=== PATIENT | male | born 1960 | race Two or more races ===

== ENCOUNTER → 2024-07-13 | Outpatient (CLI) | payer BC, SELFPAY ==
[2024-07-13 16:12] LABS: Basophils % (Auto) 0 % (0-2.5); Eosinophils % (Auto) 1 % (0-10); Hematocrit 41.8 % (41.0-53.0); Hemoglobin 14.3 g/dL (13.5-16.0); Immature Granulocytes % (Auto) 0 % (0-0); Immature Granulocytes Auto 0.01 Thou/mm3 (0.00-0.00); Lymphocytes # (Auto) 2.5 Thou/mm3 (1.0-4.8); Lymphocytes % (Auto) 33 % (10-50); Mean Corpuscular HGB Conc 34.2 g/dl (31.0-37.0); Mean Corpuscular Volume 91 fL (80-100); Monocytes # (Auto) 0.4 Thou/mm3 (0.0-0.8); Monocytes % (Auto) 5 % (0-12); Neutrophils # (Auto) 4.7 Thou/mm3 (1.8-7.7); Neutrophils % (Auto) 62 % (37-80); Nucleated Red Blood Cell % 0 /100 WBC (0); Platelet Count 179 Thou/mm3 (140-440); RDW Standard Deviation 46.4 fL (35.1-43.9); Red Blood Count 4.62 Miln/mm3 (4.50-5.90); White Blood Count 7.6 Thou/mm3 (3.8-10.6)
[2024-07-13 16:26] LABS: Alanine Aminotransferase 35 U/L (10-49); Albumin, Serum 4.6 gm/dL (3.4-4.8); Albumin/Globulin Ratio 2.2 (1.2-2.2); Alkaline Phosphatase 57 U/L (46-116); Anion Gap 7 (7-16); Aspartate Amino Transferase 65 U/L (0-34); BUN/Creatinine Ratio 14 Ratio (12-20); Bilirubin,Total 0.8 mg/dL (0.3-1.2); Blood Urea Nitrogen 11 mg/dL (9-23); Calcium 9.7 mg/dL (8.3-10.6); Calcium (Corrected) 9.7 mg/dL (8.5-10.1); Carbon Dioxide 27.5 mMol/L (20.0-31.0); Cardiac Risk Estimate 3.3 RATIO (4.0-6.7); Chloride 106 mMol/L (98-107); Cholesterol 140 mg/dL (132-200); Creatinine (Component) 0.8 mg/dL (0.6-1.3); Globulin 2.1 gm/dL (2.3-3.5); Glucose 98 mg/dL (74-106); HDL Cholesterol 42 mg/dL (40-60); LDL Cholesterol,Calculated 52 mg/dL (0-130); Osmolality,Calculated 278 (275-295); Potassium 4.5 mMol/L (3.4-5.1); Sodium 140 mMol/L (136-145); Total Protein 6.7 gm/dL (5.7-8.2); Triglycerides 228 mg/dL (30-150); eGFR > 60 See Note
[2024-07-13 16:27] LABS: Creatinine MALB Rnd Ur 154 mg/dL (30-125); Microalbumin Creat Ratio 3 mg/gCrea (<30); Microalbumin, Random Urine 5 mg/L (0-300)
[2024-07-13 16:37] LABS: Glucose Estimated Average 100 mg/dL (80-131); Hemoglobin A1C 5.1 % Hgb (4.8-6.0)
[2024-07-13 16:39] LABS: Vitamin B12 317 pg/mL (211-911); Vitamin D 25 Hydroxy Total 67.6 ng/mL (7.3-40.2)
== END | disposition home or self-care (01) ==
PROVIDERS: PCP Family Medicine; Referring Provider Family Medicine; Visit Provider Internal Medicine Endocrinology, Diabetes & Metabolism
DX: E11.65 Type 2 diabetes mellitus with hyperglycemia (principal); E55.9 Vitamin D deficiency, unspecified; E53.8 Deficiency of other specified B group vitamins
CPT/HCPCS: 36415; 80053; 80061; 82043; 82306; 82570; 82607; 83036; 85025

== ENCOUNTER → 2024-08-10 | Outpatient (CLI) | payer BC, SELFPAY ==
[2024-08-10 09:08] LABS: Quantiferon-TB* See Sep Rpt
== END | disposition home or self-care (01) ==
PROVIDERS: PCP Family Medicine; Referring Provider Nurse Practitioner Family; Visit Provider Nurse Practitioner Family
DX: L40.0 Psoriasis vulgaris (principal)
CPT/HCPCS: 86480

== ENCOUNTER → 2024-10-16 | Outpatient (CLI) | payer BC, SELFPAY ==
--- NOTE | 2024-10-16 16:48 | XR_ITS ---
Examination: Knee, right , 3 views Technique: Knee AP, lateral, oblique 3 views Date and time of exam: October 16, 2024 1649 hrs. Indications: Right knee pain beginning 6 days ago. Findings: Mild tricompartment osteoarthritis No fracture or dislocation Impression: Mild tricompartment osteoarthritis
== END | disposition home or self-care (01) ==
PROVIDERS: PCP Family Medicine; Referring Provider Family Medicine; Visit Provider Family Medicine
DX: M17.11 Unilateral primary osteoarthritis, right knee (principal)
CPT/HCPCS: 73562

== ENCOUNTER → 2024-11-06 | Outpatient (CLI) | payer BC, SELFPAY ==
[2024-11-06 13:27] LABS: Basophils % (Auto) 1 % (0-2.5); Eosinophils # (Auto) 0.1 Thou/mm3 (0.0-0.5); Eosinophils % (Auto) 1 % (0-10); Hemoglobin 15.3 g/dL (13.5-16.0); Immature Granulocytes % (Auto) 0 % (0-0); Immature Granulocytes Auto 0.01 Thou/mm3 (0.00-0.00); Lymphocytes # (Auto) 2.3 Thou/mm3 (1.0-4.8); Lymphocytes % (Auto) 38 % (10-50); Mean Corpuscular HGB Conc 34.8 g/dl (31.0-37.0); Mean Corpuscular Hemoglobin 31.5 pg (25.0-35.0); Mean Corpuscular Volume 91 fL (80-100); Monocytes # (Auto) 0.3 Thou/mm3 (0.0-0.8); Monocytes % (Auto) 5 % (0-12); Neutrophils # (Auto) 3.4 Thou/mm3 (1.8-7.7); Neutrophils % (Auto) 56 % (37-80); Nucleated Red Blood Cell % 0 /100 WBC (0); Platelet Count 167 Thou/mm3 (140-440); RDW Standard Deviation 47.4 fL (35.1-43.9); Red Blood Count 4.86 Miln/mm3 (4.50-5.90); White Blood Count 6.1 Thou/mm3 (3.8-10.6)
[2024-11-06 13:42] LABS: Creatinine MALB Rnd Ur 119 mg/dL (30-125); Microalbumin Creat Ratio 3 mg/gCrea (<30); Microalbumin, Random Urine 4 mg/L (0-300)
[2024-11-06 13:45] LABS: Alanine Aminotransferase 19 U/L (10-49); Albumin, Serum 4.1 gm/dL (3.4-4.8); Albumin/Globulin Ratio 1.9 (1.2-2.2); Alkaline Phosphatase 56 U/L (46-116); Anion Gap 4 (7-16); Aspartate Amino Transferase 22 U/L (0-34); BUN/Creatinine Ratio 11 Ratio (12-20); Bilirubin,Total 0.9 mg/dL (0.3-1.2); Blood Urea Nitrogen 8 mg/dL (9-23); Carbon Dioxide 28.8 mMol/L (20.0-31.0); Cardiac Risk Estimate 3.4 RATIO (4.0-6.7); Chloride 109 mMol/L (98-107); Cholesterol 165 mg/dL (132-200); Creatinine (Component) 0.7 mg/dL (0.6-1.3); Globulin 2.2 gm/dL (2.3-3.5); Glucose 94 mg/dL (74-106); HDL Cholesterol 49 mg/dL (40-60); LDL Cholesterol,Calculated 95 mg/dL (0-130); Osmolality,Calculated 281 (275-295); Potassium 4.5 mMol/L (3.4-5.1); Sodium 142 mMol/L (136-145); Total Protein 6.3 gm/dL (5.7-8.2); Triglycerides 107 mg/dL (30-150); eGFR > 60 See Note
[2024-11-06 13:47] LABS: Vitamin B12 311 pg/mL (211-911); Vitamin D 25 Hydroxy Total 56.6 ng/mL (7.3-40.2)
[2024-11-06 15:32] LABS: Glucose Estimated Average 97 mg/dL (80-131)
== END | disposition home or self-care (01) ==
PROVIDERS: PCP Family Medicine; Referring Provider Internal Medicine Endocrinology, Diabetes & Metabolism; Visit Provider Family Medicine
DX: R79.89 Other specified abnormal findings of blood chemistry (principal); E55.9 Vitamin D deficiency, unspecified; E11.65 Type 2 diabetes mellitus with hyperglycemia
CPT/HCPCS: 36415; 80053; 80061; 82043; 82306; 82570; 82607; 83036; 85025

== ENCOUNTER → 2024-12-18 | Outpatient (CLI) | payer BC, SELFPAY ==
--- NOTE | 2024-12-18 08:15 | XR_ITS ---
Exam: MRI knee without contrast, right Date and time of exam: December 18, 2024 0828 hours INDICATIONS: Medial knee pain beginning 6 months ago Technique: Multiple axial, coronal, and sagittal sections on the knee have been obtained. T2-Weighted sagittal, fat-suppressed images, TR 3,500, TE 62, T2 weighted coronal fat-saturated images, TR 3,500, TE 62 Proton density sagittal sections, TR 1800, TE 31. T-1 weighted coronal images, TR 524, TE 13.0 Findings: Medial meniscus anterior horn intact. Medial meniscus, body is horizontal linear tear communicating inner margin. Posterior horn medial meniscus horizontal linear tear communicating inner margin. Lateral meniscus anterior horn is intact Lateral meniscus, body is intact Posterior horn lateral meniscus is intact Anterior cruciate ligament high-grade sprain Posterior cruciate ligament appears intact. Knee effusion is small. Quadriceps and patellar tendons appear intact. There is no evidence of tendinosis. Inflammatory change or fracture of Hoffa's fat pad is not seen. Medial patellar facet demonstrates moderate thinning. Lateral patellar facet cartilage demonstrates moderate thinning. Trochlear cartilage demonstrates moderate thinning. Marrow signal adequate. Medial collateral ligament appears intact. No meniscocapsular separation is seen. Illiotibial band and fibular collateral ligament are intact. Biceps femoris tendons appear intact. Medial femoral condylar articular cartilage demonstrates moderate thinning. Lateral femoral condylar articular cartilage demonstratesmoderate thinning. Tibial plateau cartilage demonstrates moderate thinning. Impression: Horizontal linear tears body and posterior horn medial meniscus High-grade sprain anterior cruciate ligament
== END | disposition home or self-care (01) ==
PROVIDERS: PCP Family Medicine; Referring Provider Family Medicine; Visit Provider Family Medicine
DX: S83.241A Other tear of medial meniscus, current injury, right knee, initial encounter (principal); S83.511A Sprain of anterior cruciate ligament of right knee, initial encounter; X58.XXXA Exposure to other specified factors, initial encounter
CPT/HCPCS: 73721

== ENCOUNTER → 2025-01-08 | Outpatient (CLI) | payer BC, SELFPAY ==
[2025-01-08 18:01] LABS: Prostate Specific Antigen 0.72 ng/mL (0-4.00)
== END | disposition home or self-care (01) ==
LOC: COPL 15:59
PROVIDERS: PCP Family Medicine; Referring Provider Urology; Visit Provider Urology
DX: N40.1 Benign prostatic hyperplasia with lower urinary tract symptoms (principal)
CPT/HCPCS: 36415; 84153

== ENCOUNTER → 2025-01-15 | Outpatient (BNVA) | payer BC, SELFPAY | END | disposition home or self-care (01) | PROVIDERS: PCP Family Medicine; Referring Provider Family Medicine; Visit Provider Urology | DX: N40.1 Benign prostatic hyperplasia with lower urinary tract symptoms (principal); N13.8 Other obstructive and reflux uropathy; E11.9 Type 2 diabetes mellitus without complications; E66.9 Obesity, unspecified; Z68.26 Body mass index [BMI] 26.0-26.9, adult | CPT/HCPCS: 81003; 99212; G0463 ==

== ENCOUNTER → 2025-01-30 | Outpatient (CLI) | payer BC, SELFPAY ==
[2025-01-30 12:12] LABS: Glucose Estimated Average 94 mg/dL (80-131); Hemoglobin A1C 4.9 % Hgb (4.8-6.0)
[2025-01-30 12:22] LABS: Alanine Aminotransferase 26 U/L (10-49); Albumin, Serum 4.4 gm/dL (3.4-4.8); Albumin/Globulin Ratio 1.8 (1.2-2.2); Alkaline Phosphatase 68 U/L (46-116); Anion Gap 6 (7-16); Aspartate Amino Transferase 26 U/L (0-34); BUN/Creatinine Ratio 11 Ratio (12-20); Bilirubin,Total 0.6 mg/dL (0.3-1.2); Blood Urea Nitrogen 9 mg/dL (9-23); Calcium 9.4 mg/dL (8.3-10.6); Calcium (Corrected) 9.4 mg/dL (8.5-10.1); Carbon Dioxide 30.3 mMol/L (20.0-31.0); Cardiac Risk Estimate 3.4 RATIO (4.0-6.7); Chloride 106 mMol/L (98-107); Cholesterol 171 mg/dL (132-200); Creatinine (Component) 0.8 mg/dL (0.6-1.3); Globulin 2.4 gm/dL (2.3-3.5); Glucose 104 mg/dL (74-106); HDL Cholesterol 50 mg/dL (40-60); LDL Cholesterol,Calculated 96 mg/dL (0-130); Osmolality,Calculated 281 (275-295); Sodium 142 mMol/L (136-145); Total Protein 6.8 gm/dL (5.7-8.2); Triglycerides 123 mg/dL (30-150); eGFR > 60 See Note
[2025-01-30 12:24] LABS: Vitamin B12 338 pg/mL (211-911); Vitamin D 25 Hydroxy Total 33.3 ng/mL (7.3-40.2)
[2025-01-30 13:29] LABS: Creatinine MALB Rnd Ur 240 mg/dL (30-125); Microalbumin Creat Ratio 5 mg/gCrea (<30); Microalbumin, Random Urine 12 mg/L (0-300)
== END | disposition home or self-care (01) ==
LOC: COPL 11:27
PROVIDERS: PCP Family Medicine; Referring Provider Family Medicine; Visit Provider Internal Medicine Endocrinology, Diabetes & Metabolism
DX: E11.65 Type 2 diabetes mellitus with hyperglycemia (principal); E78.1 Pure hyperglyceridemia; E53.8 Deficiency of other specified B group vitamins; E55.9 Vitamin D deficiency, unspecified
CPT/HCPCS: 36415; 80053; 80061; 82043; 82306; 82570; 82607; 83036

== ENCOUNTER → 2025-02-13 | Outpatient (CLI) | payer BC, SELFPAY ==
--- NOTE | 2025-02-13 | XR_ITS ---
Examination: MRI cervical spine without intravenous contrast Date and time of exam: February 13, 2025 0701 hours Comparison October 28, 2023 INDICATIONS: Neck pain years more prominent the last 6 months, history cervical spine surgery Technique: Multiple axial and sagittal sections of the cervical spine to been obtained. T2 weighted sagittal sections, TR 3, 270, TE 117 T1-weighted sagittal sections, TR 500, TE 11 T1-weighted axial sections, TR 607, TE 12, axial sections TR 18, TE 27 and T2 weighted transverse sections, TR 3920, TE 122. Findings: Satisfactory alignment cervical vertebral bodies Cervical fusion C5-C7 with satisfactory alignment No cervical fracture Intact odontoid No localized enlargement cervical cord C2-C3 no disc protrusion C3-C4 advanced right neural foraminal stenosis C4-C5 advanced left neural foraminal stenosis C5-C6 advanced left neural foraminal stenosis C6-C7 advanced left neural foraminal stenosis C7-T1 no disc protrusion IMPRESSION: Cervical fusion C5-C7 with satisfactory alignment C3-C4 advanced right neural foraminal stenosis C4-C5, C5-C6, C6-C7 advanced left neural foraminal stenosis
== END | disposition home or self-care (01) ==
PROVIDERS: PCP Family Medicine; Referring Provider Family Medicine; Visit Provider Family Medicine
DX: M43.22 Fusion of spine, cervical region (principal); M48.02 Spinal stenosis, cervical region
CPT/HCPCS: 72141

== ENCOUNTER 2025-03-15 11:05 | Emergency (ER) | payer BC, SELFPAY ==
[2025-03-15 11:15] VITALS: BP 145/89; PULSE 79; RESP 16; TEMP 36.6; O2SAT 98; BMI 25.8
--- NOTE | 2025-03-15 11:20 | XR_ITS ---
Examination: Shoulder,left, 3 views Technique: Shoulder AP internal rotation, AP external rotation, Y view shoulder, 3 views Exam date and time :March 15, 2025 1140 hours INDICATIONS: Patient fell off a roof yesterday with injury to the shoulder, shoulder pain FINDINGS: No shoulder fracture or dislocation No AC joint separation IMPRESSION: No shoulder fracture or dislocation
--- NOTE | 2025-03-15 11:20 | XR_ITS ---
Examination: Shoulder,right, 3 views Technique: Shoulder AP internal rotation, AP external rotation, Y view shoulder, 3 views Exam date and time :March 15, 2025 1150 hours INDICATIONS: Patient fell of the wrist today, shoulder pain FINDINGS: No shoulder fracture or dislocation. No AC joint separation. IMPRESSION: No shoulder fracture or dislocation.
--- NOTE | 2025-03-15 11:20 | XR_ITS ---
Examination: CT brain head without contrast. 2-D sagittal coronal reconstructions Date and time of exam:March 15, 2025 1231 hours INDICATIONS: Patient fell 8 feet off a ladder today with injury to the head, head pain CTDI: vol (mGy):51.5 DLP: (mGycm):1104 Technique: Multiple CT axial sections of the brain have been obtained, 5 mm slice thickness. Contrast has not been administered. 2-D sagittal, coronal reconstructions have been obtained Low dose protocols were performed. One or more of the following dose reduction techniques were used; automated exposure control, adjustment of the mA and/or KV according to patient size, use of iterative reconstruction technique. Findings: No significant ventricular enlargement. Intra-axial or extra-axial hemorrhage density is not seen. No mass effect or midline shift Basal cisterns are not remarkable. Fourth ventricle is midline. Cranial vault intact. Soft tissue swelling left frontal scalp Impression: Negative for acute hemorrhage, mass effect or midline shift
--- NOTE | 2025-03-15 11:20 | XR_ITS ---
Examination: Right wrist 2 views Technique: AP lateral right wrist 2 views Date and time: 09/15/2024 1146 hours INDICATIONS: Patient fell over a today with injury to the wrist, wrist pain. FINDINGS: Tiny area of possible cortical disruption dorsal distal radius on the lateral view Carpal bones intact IMPRESSION: Recommend 1-2 day follow-up films to exclude nondisplaced fracture distal right radial metaphysis
--- NOTE | 2025-03-15 11:20 | XR_ITS ---
Examination: Right knee 2 views TECHNIQUE: AP lateral right knee 2 views Date and time: March 15, 2025 1149 hours INDICATIONS: Patient fell off a roof today with into the knee, knee pain. FINDINGS: No fracture or dislocation. Mild tricompartment osteoarthritis IMPRESSION: No fracture or dislocation.
--- NOTE | 2025-03-15 11:20 | XR_ITS ---
Examination: CT maxillofacial, without intravenous contrast. 2-D sagittal reconstructions. 3-D reconstructions. Date and time of exam:March 15, 2025 1231 hours INDICATIONS: Patient fell 8 feet off a ladder today with injury to the face, facial pain CTDI: vol (mGy):15.7 DLP: (mGycm):307 Technique: Multiple axial images of maxillofacial region, 3.0 mm slice thickness. 2-D sagittal and coronal reconstructions. 3-D reconstructions. Low dose protocols were performed. One or more of the following dose reduction techniques were used; automated exposure control, adjustment of the mA and/or KV according to patient size, use of iterative reconstruction technique. Findings: Frontal bone intact Orbital rims intact The optic globes exhibit symmetry No nasal bone fracture No depression zygomatic arches Pterygoid plates maxilla and the mandible intact IMPRESSION: No acute facial fracture.
--- NOTE | 2025-03-15 11:20 | XR_ITS ---
Examination: Left wrist 2 views Technique one AP lateral left wrist 2 views Date and time: March 15, 2025 1144 hours INDICATIONS: Patient fell off a worse today with injury to the wrist, wrist pain. FINDINGS: Acute nondisplaced fracture distal radial metaphysis,, intra-articular breaking the cortex noted dorsal wrist on the lateral view Carpal bones intact IMPRESSION: Acute nondisplaced fracture distal radial metaphysis
--- NOTE | 2025-03-15 11:20 | XR_ITS ---
Examination: CT cervical spine without contrast 2-D sagittal reconstructions 2-D coronal reconstructions 3-D reconstructions. Exam date and time:March 15, 2025 1231 hours INDICATIONS: Patient fell off a ladder today with injury to the neck, neck pain CTDI:vol (mGy) 15.7 DLP: (mGycm) 356 Technique: Multiple 2 mm axial sections of the cervical spine have been obtained. The coronal and sagittal reconstructions have been obtained. 3-D reconstructions have been obtained. Low dose protocols were performed. One or more of the following dose reduction techniques were used; automated exposure control, adjustment of the mA and/or KV according to patient size, use of iterative reconstruction technique. Findings: Axial sections demonstrate intact base of the skull. C1 exhibit satisfactory relationship to the odontoid. No acute cervical vertebral body fracture seen. Alignment posterior spinous processes satisfactory. Cervical fusion C5-C7 with anatomic alignment Impression: No acute cervical fracture.
--- NOTE | 2025-03-15 11:22 | XR_ITS ---
Examination: AP chest single view Technique one AP portable sitting chest single view Date and time: March 15, 2025 1139 hours INDICATIONS: Patient follow fluoroscopy today with injury to the chest, chest pain FINDINGS: Normal heart size No pneumothorax Clavicles ribs appear intact IMPRESSION: No pneumothorax pulmonary contusion or hemothorax
--- NOTE | 2025-03-15 11:23 | EDNOTE_ITS ---
<Statement entered by Sheryl Dorado MD - 03/15/25 14:48> As co-signing physician, I was present and available for consult prn. I concur with the plan and care as documented by the midlevel provider. ED Fall Injury RME/HPI General Chief Complaint: Fall Stated Complaint: Fell from roof, hit head, wrist pain Time Seen by Provider: 03/15/25 11:19 Arrival date/time: 03/15/25 11:05 RME / HPI RME / HPI Narrative: 64-year-old male patient with significant history of hypertension diabetes mellitus, was brought in by family for evaluation regarding fall. Patient was fixing the roof of his house, on the way down, patient was in a ladder, and lost balance, and fell down according to him about 6 feet high. Patient sustained abrasion to the right side of the face, neck pain, bilateral shoulder pain, bilateral wrist pain, and right knee pain. Patient denies any LOC no nausea no vomiting. Patient is ambulatory. Patient is not taking any blood thinner. Incident happened about 30 minutes prior to ER visit. Related Data Home Medications ?Medication ?Instructions ?Recorded ?Confirmed enalapril maleate 2.5 mg tablet 2.5 mg PO DAILY 01/15/25 gemfibrozil 600 mg tablet 600 mg PO BID 02/12/2301/15 guselkumab 100 mg/mL subcutaneous 100 mg subcut 01/15/25 syringe (Tremfya) metformin 1,000 mg tablet 1,000 mg PO DAILY 02/12/23 0 01/15/25 pregabalin 100 mg capsule 100 mg PO BID 02/12/2301/15 rosuvastatin 20 mg tablet 20 mg PO DAILY 02/12/2305/03 semaglutide 2 mg/dose (8 mg/3 mL) mg subcut 02/12/23 0 01/15/25 subcutaneous pen injector (Ozempic) Previous Rx's ?Medication ?Instructions ?Recorded acetaminophen 300 mg-codeine 30 mg 1 tab PO Q8H PRN pa in #20 tabs 03/15/25 tablet Allergies Allergy/AdvReac Type Severity Reaction Status Date / Time No Known Allergies Allergy Verified 03/15/25 11:10 Review of Systems Review of Systems Narrative Review of Systems: Review of system reviewed and within normal limits except mentioned in HPI ED Exam Narrative Physical exam: VITAL SIGNS: Reviewed. GENERAL APPEARANCE: Alert and interactive, follows commands, no acute distress, HEAD AND FACE: Abrasions noted to the right side of her face ENT: PERRL, pink conjunctivitis, eyelid no trauma, Mucous membrane moist. NECK: Supple, posterior neck tenderness, no nuchal rigidity. CHEST: No tenderness, no crepitus, no paradoxical movement, no retractions. LUNGS: Clear, well ventilated, symmetric, no rales, no wheezing, no ronchi, no stridor, good breath sounds bilaterally. HEART: Regular rate, regular rhythm, no murmur, no gallops. ABDOMEN: Soft, positive bowel sounds, nondistended, no guarding, nontender, no rebound, no masses, RECTAL: Deferred. GENITAL: Deferred. NEUROLOGICAL: Gross motor function intact sensory function intact, Appropriate for age. MUSCULOSKELETAL: low back nontender, full range of motion. EXTREMITIES: Bilateral wrist tenderness, mild swelling full range of motion. Lateral shoulder tenderness, no swelling or deformity, right knee tenderness, with abrasion and contusion full range of motion of the knee joint SKIN: Color pink, dry, no rash, no lacerations, no abrasions, no contusions. LYMPHATICS: Deferred. Course Quality Measures none Orders Category Date Time Status CT cervical spine wo con Stat Exams 03/15/25 11:[address] facial bones wo con Stat Exams 03/15/25 11:[address] head/brain wo con Stat Exams 03/15/25 11:20 Completed XR chest 1V Stat Exams 03/15/25 11:22 Completed XR knee limited RT 2V Stat Exams 03/15/25 11:20 Completed XR shoulder LT min 2V Stat Exams 03/15/25 11:20 Completed XR shoulder RT min 2V Stat Exams 03/15/25 11:20 Completed XR wrist LT 2V Stat Exams 03/15/25 11:20 Completed XR wrist RT 2V Stat Exams 03/15/25 11:20 Completed HYDROcodone*/APAP 5/325 [[place] 5/325] Med 03/15/25 11:20 Discontinued 1 tab PO X1 ONE Morphine Inj Med 03/15/25 13:32 Discontinued 4 mg IM X1 ONE TET,DIP/PERT AC (Adult)-Tdap [Boostrix Adult (Tdap) Med 03/15/25 11:20 Discontinued Vacc] 0.5 ml IMI .ONCE ONE Vital Signs Vital signs: Vital Signs Temperature 97.8 F 03/15/25 11:15 Pulse Rate 79 03/15/25 11:15 Respiratory Rate 16 03/15/25 11:15 Blood Pressure 145/89 H 03/15/25 11:15 Pulse Oximetry (%) 98 03/15/25 11:15 Oxygen Delivery Method Room Air 03/15/25 11:15 Fall MDM Narrative MDM Narrative:: 64-year-old male patient with significant history of hypertension diabetes mellitus, was brought in by family for evaluation regarding fall. Patient was fixing the roof of his house, on the way down, patient was in a ladder, and lost balance, and fell down according to him about 6 feet high. Patient sustained abrasion to the right side of the face, neck pain, bilateral shoulder pain, bilateral wrist pain, and right knee pain. Patient denies any LOC no nausea no vomiting. Patient is ambulatory. Patient is not taking any blood thinner. Incident happened about 30 minutes prior to ER visit. Abrasion to face cleaned with NS and Neosporin dressing applied. CT scan of the head came back unremarkable. CT scan of the face came back unremarkable. CT scan of the neck came back unremarkable. X-ray of the left wrist showed distal radius fracture otherwise unremarkable. X-ray of the right wrist no abnormality noted. X-ray of the knee no abnormality noted. X-ray of bilateral shoulder came back unremarkable. Results discussed with the patient. Bilateral wrist splint applied. Distal neurovascular status intact. Patient was advised to follow-up closely with PCP or for referral to orthopedic surgeon regarding left distal radius fracture. Patient data External records reviewed:: None Clinical information provided by:: patient and family Social determinants that could affect healthcare access:: none Patient has the following chronic illnesses:: Diabetes mellitus hypertension How is presenting disease/condition affected by chronic disease/condition?: uneffected by Evaluation data The following diagnostics were reviewed and interpreted by me:: radiology exam(s) Lab and/or radiology exams considered but not ordered:: None Interpretation Summary: None see results MDM Medications / Prescriptions Medications or Prescriptions considered but not ordered:: None Medication administrations:: Medication Administration History Discontinued Medications Hydrocodone Bitart/Acetaminophen (Hydrocodone/Apap 5/325 Tablet) 1 tab PO X1 ONE Stop: 03/15/25 11:21 Last Admin: 03/15/25 11:32 Dose: 1 tab Documented By: JEFFREY Diphtheria/Tetanus/Acell Pertussis (Diphth,Pertuss(Acell),Tet Vac 0.5 Ml Syr- Adult) 0.5 ml IMi .ONCE ONE Stop: 03/15/25 11:21 Last Admin: 03/15/25 11:36 Dose: 0.5 ml Documented By: JEFFREY Morphine Sulfate (Morphine Sulf Inj 10 Mg/Ml Vial) 4 mg IM X1 ONE Stop: 03/15/25 13:33 Last Admin: 03/15/25 13:42 Dose: 4 mg Documented By: JEFFREY Morphine, Boostrix and [place] Consultations Consultation(s) initiated? (list below): No Diagnosis Fall Differential Diagnosis: other (Fall, intracranial bleed, facial fracture, wrist pain) Most likely diagnosis given after review of the tests above:: Left distal radius fracture, right wrist sprain, facial abrasion, fall Admission Indicated Admission indicated?: not indicated Explain why admission is indicated or not indicated:: Stable Admission Request Was there a request for admission?: No Disposition Plan Disposition Plan: Discharge Discharge Attestation Discharge Attestation: The patient and all family members were given an opportunity to ask questions and understood the discharge instructions. Discharge instructions specifically effects, indications for sooner follow up or return to the emergency department, and the expected course of current diagnosis. Patient condition: Stable Discharge Plan Plan Patient Disposition: HOME (Self Care) Prescriptions/Referrals Prescriptions/Med Rec: New acetaminophen-codeine 300-30 mg tablet 1 tab PO Q8H PRN (Reason: pain) Qty: 20 0RF No Action enalapril maleate 2.5 mg tablet 2.5 mg PO DAILY gemfibrozil 600 mg tablet 600 mg PO BID metformin 1,000 mg tablet 1,000 mg PO DAILY rosuvastatin 20 mg tablet 20 mg PO DAILY pregabalin 100 mg capsule 100 mg PO BID Tremfya 100 mg/mL syringe 100 mg SUBCUT Rx Instructions: every 60 days Ozempic 2 mg/dose (8 mg/3 mL) pen injector SUBCUT Referrals: Moises Foss MD [Primary Care Provider] - In 1 week Problem List Clinical Impression: Abrasion of face, Fall, Distal radius fracture, left, Sprain of wrist Patient/Caregiver Discharge Instructions Discharge Activity: activity as tolerated Education Materials: How Bones Heal Additional Instructions: Thank you for the opportunity for serving you today. You are stable for discharged . You are advised to: Follow-up with your PCP in 1 to 2 days and as per referral to orthopedic surgeon Return to ED for worsening of symptoms Increase oral fluids Take medication as prescribed Daily dressing with bacitracin as needed Wear your wrist splint especially on the left minimum 4 weeks or until cleared b y your orthopedic surgeon Print Language: Bhutanese Stand Alone Forms: Danan Award Info., Patient Portal Info Letter PA/COLLEGE ARCHIVIST Supervising Physician PA/COLLEGE ARCHIVIST Supervising Physician: MD Estrada
[2025-03-15] MEDS: HYDROcodone/APAP 5/325 TABLET 1 TAB PO (11:32)
[2025-03-15] MEDS: DIPHTH,PERTUSS(ACELL),TET VAC 0.5 ML SYR- ADULT IMi (11:36)
[2025-03-15] MEDS: MORPHINE SULF INJ 10 MG/ML VIAL 4 MG IM (13:42)
[2025-03-15 14:39] VITALS: BP 128/69; PULSE 66; RESP 18; TEMP 36; O2SAT 98
== END 2025-03-15 14:40 | disposition home or self-care (01) ==
PROVIDERS: Emergency Provider Emergency Medicine; PCP Family Medicine
DX: S52.572A Other intraarticular fracture of lower end of left radius, initial encounter for closed fracture (principal); S63.501A Unspecified sprain of right wrist, initial encounter; S00.81XA Abrasion of other part of head, initial encounter; S80.211A Abrasion, right knee, initial encounter; S80.01XA Contusion of right knee, initial encounter; S29.9XXA Unspecified injury of thorax, initial encounter; S49.92XA Unspecified injury of left shoulder and upper arm, initial encounter; S19.9XXA Unspecified injury of neck, initial encounter; W13.2XXA Fall from, out of or through roof, initial encounter; Z23 Encounter for immunization
CPT/HCPCS: 70450; 70486; 71045; 72125; 73030; 73100; 73560; 90471; 90715; 96372; 99284; J2270; A9270

== ENCOUNTER → 2025-04-02 | Outpatient (CLI) | payer BC, SELFPAY ==
--- NOTE | 2025-04-02 09:54 | XR_ITS ---
Examination: Bilateral wrists 6 views TECHNIQUE: AP oblique and lateral uterus total 6 views Date and time: April 02, 2025, 1002 hours INDICATIONS: Wrist pain months. FINDINGS: Bilateral [id number] osteoarthritis radiocarpal and first carpometacarpal joints No fracture is No avascular necrosis No foreign body IMPRESSION: Bilateral [id number] osteoarthritis radiocarpal and first carpometacarpal joints.
--- NOTE | 2025-04-02 09:54 | XR_ITS ---
Examination: Bilateral hands, 6 views. Technique: AP, Oblique, Lateral each hand total 6 views Date and time of exam: April 02, 2025 1002 hours INDICATIONS: Bilateral wrist and hand pain after falling March 15, 2025, right hand trigger finger second digit FINDINGS: Significant osteopenia [id number] osteoarthritis radiocarpal and first carpometacarpal joints bilaterally. No acute fractures Mild osteoarthritis distal interphalangeal joints second through fifth digits and interphalangeal joints first digits No erosive arthritis IMPRESSION: Osteoarthritis as above
== END | disposition home or self-care (01) ==
LOC: CDIM 09:49
PROVIDERS: PCP Family Medicine; Referring Provider Nurse Practitioner Gerontology; Visit Provider Nurse Practitioner Gerontology
DX: M19.032 Primary osteoarthritis, left wrist (principal); M19.031 Primary osteoarthritis, right wrist; M18.0 Bilateral primary osteoarthritis of first carpometacarpal joints; M19.042 Primary osteoarthritis, left hand; M19.041 Primary osteoarthritis, right hand
CPT/HCPCS: 73110; 73130

== ENCOUNTER → 2025-05-02 | Outpatient (CLI) | payer BC, SELFPAY ==
--- NOTE | 2025-05-02 | XR_ITS ---
Examination: Bilateral wrists 6 views TECHNIQUE: AP oblique lateral each wrist total 6 views Date and time: May 02, 2025 1226 hours INDICATIONS: Acute wrist fracture 7 weeks ago FINDINGS: Partial healing fracture distal left radial metaphysis, intra-articular with stable and satisfactory alignment Old appearing fracture distal right radial metaphysis Mild osteoarthritis radiocarpal joints and first carpometacarpal joints IMPRESSION: Partial healing fracture distal left radial metaphysis, intra-articular, with stable and satisfactory alignment
--- NOTE | 2025-05-02 | XR_ITS ---
Examination: Bilateral hands, 6 views. Technique: AP, Oblique, Lateral each hand total 6 views Date and time of exam: May 02, 2025 1220 hours INDICATIONS: History wrist fracture 7 weeks ago Findings: Healing fracture distal left radial metaphysis, intra-articular Anatomic alignment Moderate osteopenia No acute fractures Mild to moderate osteoarthritis right radiocarpal joint IMPRESSION: Partial healing fracture distal left radial metaphysis with satisfactory alignment
== END | disposition home or self-care (01) ==
LOC: CDIM 11:35
PROVIDERS: PCP Family Medicine; Referring Provider Surgery Surgery of the Hand; Visit Provider Surgery Surgery of the Hand
DX: S52.92XA Unspecified fracture of left forearm, initial encounter for closed fracture (principal); X58.XXXA Exposure to other specified factors, initial encounter; M25.531 Pain in right wrist; M25.532 Pain in left wrist; M79.641 Pain in right hand
CPT/HCPCS: 73110; 73130

== ENCOUNTER → 2025-05-12 | Outpatient (CLI) | payer BC, SELFPAY ==
--- NOTE | 2025-05-12 10:45 | XR_ITS ---
MRI shoulder, left, without contrast. Date and time: May 12, 2025, 1103 hrs. Indications: Patient fell off a ladder onto 2024 with injury of the shoulder, shoulder pain weakness decreased range of motion joint clicking Technique: Multiple axial, sagittal and coronal sections of the shoulder have been obtained. Siemens high-resolution 1.5 Nati MRI scanner is utilized. Axial fat-suppressed sections, TR 2350, TE 18 T2-weighted coronal fat-saturated images, TR 3500, TE 7100 T1-weighted coronal images, TR 500, TE 15 T2-weighted sagittal fat-saturated images, TR 3500, TE 57 T1-weighted sagittal sections, TR 504, TE 13. Findings: Supraspinatus tendon insertion is abnormal, 11 mm full-thickness tear. Infraspinatus tendon insertion is intact. Subscapularis insertion is intact. Subscapularis bursa is not seen. Long head of the biceps is in the bicipital groove. No definite tear of the biceps superior labral anchor is seen. Retraction of the musculotendinous junction of the rotator cuff is mild. Tendinosis pattern is moderate. Distance between the acromium and humeral head is 4.5 mm Atrophy of the supraspinatus muscle is moderate. Atrophy of the infraspinatus muscle is mild. Sagittal sections demonstrate a horizontal acromion. Acromioclavicular joint demonstrates mild osteoarthritis . Osacromiale is not identified. Anterior superior labral tears. Bony glenoid fossa on the sagittal sections does not demonstrate osseous defect. Occult fracture or area of avascular necrosis is not seen. Acromioclavicular joint separation is not visible. Defect in the posterolateral margin of the humeral head is not seen Impression: 11 mm full-thickness tear of the supraspinatous tendon insertion Anterior superior labral tears
== END | disposition home or self-care (01) ==
PROVIDERS: PCP Family Medicine; Referring Provider Family Medicine; Visit Provider Family Medicine
DX: S46.012A Strain of muscle(s) and tendon(s) of the rotator cuff of left shoulder, initial encounter (principal); S43.432A Superior glenoid labrum lesion of left shoulder, initial encounter; W11.XXXA Fall on and from ladder, initial encounter
CPT/HCPCS: 73221

== ENCOUNTER → 2025-05-22 | Outpatient (CLI) | payer BC, SELFPAY ==
[2025-05-22 11:30] LABS: Basophils # (Auto) 0.0 Thou/mm3 (0.0-0.2); Basophils % (Auto) 1 % (0-2.5); Eosinophils # (Auto) 0.1 Thou/mm3 (0.0-0.5); Eosinophils % (Auto) 1 % (0-10); Hematocrit 44.0 % (41.0-53.0); Hemoglobin 15.0 g/dL (13.5-16.0); Immature Granulocytes Auto 0.01 Thou/mm3 (0.00-0.00); Lymphocytes # (Auto) 2.1 Thou/mm3 (1.0-4.8); Lymphocytes % (Auto) 38 % (10-50); Mean Corpuscular HGB Conc 34.1 g/dl (31.0-37.0); Mean Corpuscular Hemoglobin 31.5 pg (25.0-35.0); Mean Corpuscular Volume 92 fL (80-100); Monocytes # (Auto) 0.3 Thou/mm3 (0.0-0.8); Monocytes % (Auto) 6 % (0-12); Neutrophils # (Auto) 3.0 Thou/mm3 (1.8-7.7); Neutrophils % (Auto) 54 % (37-80); Nucleated Red Blood Cell # 0.00 Thou/mm3 (0.00-0.00); Nucleated Red Blood Cell % 0 /100 WBC (0); Platelet Count 153 Thou/mm3 (140-440); RDW Standard Deviation 45.5 fL (35.1-43.9); Red Blood Count 4.76 Miln/mm3 (4.50-5.90); White Blood Count 5.5 Thou/mm3 (3.8-10.6)
[2025-05-22 11:40] LABS: Glucose Estimated Average 94 mg/dL (80-131); Hemoglobin A1C 4.9 % Hgb (4.8-6.0)
[2025-05-22 11:40] LABS: Creatinine MALB Rnd Ur 115 mg/dL (30-125); Microalbumin Creat Ratio 4 mg/gCrea (<30); Microalbumin, Random Urine 5 mg/L (0-300)
[2025-05-22 11:41] LABS: Alanine Aminotransferase 11 U/L (10-49); Albumin, Serum 4.0 gm/dL (3.4-4.8); Albumin/Globulin Ratio 1.7 (1.2-2.2); Alkaline Phosphatase 61 U/L (46-116); Anion Gap 9 (7-16); Aspartate Amino Transferase 16 U/L (0-34); BUN/Creatinine Ratio 10 Ratio (12-20); Bilirubin,Total 0.4 mg/dL (0.3-1.2); Blood Urea Nitrogen 8 mg/dL (9-23); Calcium 8.9 mg/dL (8.3-10.6); Calcium (Corrected) 8.9 mg/dL (8.5-10.1); Carbon Dioxide 27.8 mMol/L (20.0-31.0); Cardiac Risk Estimate 4.3 RATIO (4.0-6.7); Chloride 107 mMol/L (98-107); Cholesterol 164 mg/dL (132-200); Creatinine (Component) 0.8 mg/dL (0.6-1.3); Globulin 2.3 gm/dL (2.3-3.5); Glucose 93 mg/dL (74-106); HDL Cholesterol 38 mg/dL (40-60); LDL Cholesterol,Calculated 80 mg/dL (0-130); Osmolality,Calculated 285 (275-295); Potassium 4.2 mMol/L (3.4-5.1); Sodium 144 mMol/L (136-145); Total Protein 6.3 gm/dL (5.7-8.2); Triglycerides 231 mg/dL (30-150); eGFR > 60 See Note
[2025-05-22 11:44] LABS: Vitamin D 25 Hydroxy Total 33.8 ng/mL (7.3-40.2)
== END | disposition home or self-care (01) ==
LOC: COPL 10:21
PROVIDERS: PCP Family Medicine; Referring Provider Orthopaedic Surgery; Visit Provider Internal Medicine Endocrinology, Diabetes & Metabolism
DX: E11.65 Type 2 diabetes mellitus with hyperglycemia (principal); E55.9 Vitamin D deficiency, unspecified
CPT/HCPCS: 36415; 80053; 80061; 82043; 82306; 82570; 83036; 85025

== ENCOUNTER → 2025-06-28 | Outpatient (CLI) | payer BC, SELFPAY ==
[2025-06-28 10:22] LABS: Quantiferon-TB* See Sep Rpt
== END | disposition home or self-care (01) ==
LOC: COPL 09:56
PROVIDERS: PCP Family Medicine; Referring Provider Family Medicine; Visit Provider Family Medicine
DX: Z11.1 Encounter for screening for respiratory tuberculosis (principal)
CPT/HCPCS: 86480

== ENCOUNTER → 2025-07-27 | Outpatient (CLI) | payer BC, SELFPAY ==
--- NOTE | 2025-07-27 16:15 | XR_ITS ---
MRI shoulder, right, without contrast. Date and time: July 27, 2025, 7005 hours INDICATIONS: Patient fell 4 months ago with injury to the shoulder, right shoulder stiffness joint locking clicking pain decreased range of motion Technique: Multiple axial, sagittal and coronal sections of the shoulder have been obtained. Siemens high-resolution 1.5 Nati MRI scanner is utilized. Axial fat-suppressed sections, TR 2350, TE 18 T2-weighted coronal fat-saturated images, TR 3500, TE 7100 T1-weighted coronal images, TR 500, TE 15 T2-weighted sagittal fat-saturated images, TR 3500, TE 57 T1-weighted sagittal sections, TR 504, TE 13. Findings: Supraspinatus tendon insertion is 10 mm tear which appears to be a full-thickness tear Infraspinatus tendon insertion is intact. Subscapularis insertion is intact. Subscapularis bursa is mild. Long head of the biceps is in the bicipital groove. No definite tear of the biceps superior labral anchor is seen. Retraction of the musculotendinous junction of the rotator cuff is mild. Tendinosis pattern is prominent. Distance between the acromium and humeral head is 5.3 mm Atrophy of the supraspinatus muscle is moderate. Atrophy of the infraspinatus muscle is mild. Sagittal sections demonstrate a horizontal acromion. Acromioclavicular joint demonstrates moderate osteoarthritis. Osacromiale is not identified. Small anterior superior labral tears. Bony glenoid fossa on the sagittal sections does not demonstrate osseous defect. Occult fracture or area of avascular necrosis is not seen. Acromioclavicular joint separation is not visible. Defect in the posterolateral margin of the humeral head is not seen Impression: 10 mm supraspinatus tendon tear which appears to be full-thickness, this could be confirmed with MRI shoulder with intra-articular contrast followed by post intra-articular contrast images of the rotator cuff Small anterior labral tears
== END | disposition home or self-care (01) ==
PROVIDERS: PCP Family Medicine; Referring Provider Family Medicine; Visit Provider Family Medicine
DX: S46.011A Strain of muscle(s) and tendon(s) of the rotator cuff of right shoulder, initial encounter (principal); S43.431A Superior glenoid labrum lesion of right shoulder, initial encounter; W19.XXXA Unspecified fall, initial encounter
CPT/HCPCS: 73221